=== PATIENT | male | born 1985 | race Caucasian/White ===

== ENCOUNTER 2016-10-21 18:38 | Emergency (ER) | payer MEDICAID, OTHER ==
[2016-10-21 18:57] VITALS: BP 142/81; PULSE 85; RESP 18; TEMP 98.1; O2SAT 95
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
[2016-10-21] MEDS ORDERED: ACETAMINOPHEN 500 MG TAB PO ONE (19:30)
[2016-10-21] MEDS ORDERED: ACETAMINOPHEN 500 MG TAB ONE (19:38)
== END 2016-10-21 19:35 | disposition home or self-care (01) ==
DX: S60.222A Contusion of left hand, initial encounter (principal); M54.5 Low back pain; R21 Rash and other nonspecific skin eruption; K64.8 Other hemorrhoids; F17.200 Nicotine dependence, unspecified, uncomplicated; W22.8XXA Striking against or struck by other objects, initial encounter